=== PATIENT | male | born 1985 | race Caucasian/White ===

== ENCOUNTER 2025-03-11 11:32 | Emergency (ER) | payer OTHER ==
[~2025-03-11] VITALS: Ht 165.1 cm; Wt 76.2 kg
[2025-03-11] MEDS: IV NS 0.9% 1,000 ML BAG IV ONE ×2 (11:58→12:57)
[2025-03-11 12:01] LABS: PLATELET COUNT (AUTO) 242 K/uL (150-450); RED BLOOD CELL COUNT(AUTO) 5.67 MIL/uL (4.5-6.0); RED CELL DISTRIBUTION WIDTH 18.8 % (11.5-15.0); WHITE BLOOD COUNT (AUTO) 13.5 K/uL (4.3-11.0)
[2025-03-11 12:13] LABS: CALCIUM, SERUM 9.3 mg/dL (8.5-10.1); CREATININE 0.9 mg/dL (0.6-1.3); SODIUM SERUM 137.0 mmol/L (136-145); UREA NITROGEN, BLOOD 14.0 mg/dL (7-18)
[2025-03-11] MEDS ORDERED: MECLIZINE HCL 25 MG TABLET ONE (12:49)
[2025-03-11] MEDS: MECLIZINE HCL 25 MG TABLET PO ONE (12:57)
[2025-03-11] MEDS ORDERED: MECL-159 PO (13:23)
[2025-03-11 13:42] LABS: AMPHETAMINE, URINE NEGATIVE (NEGATIVE); BARBITURATE, URINE NEGATIVE (NEGATIVE); BENZODIAZEPINE, URINE NEGATIVE (NEGATIVE); CANNABINOID, URINE NEGATIVE (NEGATIVE); COCCAINE, URINE NEGATIVE (NEGATIVE); OPIATE, URINE NEGATIVE (NEGATIVE)
[2025-03-11 14:23] VITALS: BP 135/90; TEMP 98.5; O2SAT 98
== END 2025-03-11 14:26 | disposition home or self-care (01) ==
LOC: ER 11:38
DX: T20.10XA Burn of first degree of head, face, and neck, unspecified site, initial encounter (principal); R42 Dizziness and giddiness; X19.XXXA Contact with other heat and hot substances, initial encounter; Y93.89 Activity, other specified; Y92.89 Other specified places as the place of occurrence of the external cause; Y99.8 Other external cause status
CPT/HCPCS: 99285; 96360; 96361; 93005; 71045; 85025; 80048; 36415; 84443; 82962; 80320; 80307; J8597; J7030 ×2; G0480